=== PATIENT | male | born 1990 | race Caucasian/White ===

== ENCOUNTER → 2018-08-25 | Outpatient (CLI) | payer OTHER ==
--- NOTE | 2018-08-25 16:07 | US ---
Procedure: US SCROTUM Exam Date: 08/25/2018 Ordering Provider: Carmita Dahl Clinical Indication: TESTICULAR PAIN, RIGHT, INGUINAL PAIN Comparison: None Technique: Real-time ultrasonography was obtained of the scrotum and traveling sales representative images were recorded. Findings: The right testicle measures 4.3 x 3.0 x 2.2 cm. There are no intrinsic testicular masses. There is normal arterial flow in the right testicle. The right epididymus is normal in size and echogenicity. There are no masses. There is normal vascular flow. There is no significant hydrocele. There is no varicocele. No abnormality demonstrated in the right inguinal canal. The left testicle measures 4.7 x 3.0 x 2.4 cm. There are no intrinsic testicular masses. There is normal arterial flow in the left testicle. The left epididymus is normal in size and echogenicity. There are no masses. There is normal vascular flow. There is no significant hydrocele. There is no varicocele. Impression: 1. Negative scrotal ultrasound. Electronically signed by: Dionte Cabrera MD 08/25/2018 4:04 PM CDT
== END ==
LOC: RAD 14:52
PROVIDERS: ATTEND Nurse Practitioner Family
DX: R10.2 Pelvic and perineal pain (principal); N50.819 Testicular pain, unspecified